=== PATIENT | female | born 1995 | race Caucasian/White ===

== ENCOUNTER 2019-02-07 15:41 | Emergency (ER) | payer MEDICAID, OTHER ==
[~2019-02-07] VITALS: Ht 162.6 cm; Wt 60.7 kg
[~2019-02-07 15:41] MED LIST: FLUC150T PO; ONDA4TAB12 PO
[2019-02-07 15:46] VITALS: BP 136/79
[2019-02-07] MEDS ORDERED: PERM60CR19 TP (16:10)
== END 2019-02-07 16:46 | disposition home or self-care (01) ==
LOC: ER 15:42
DX: B86 Scabies (principal); M79.645 Pain in left finger(s); Z79.899 Other long term (current) drug therapy
CPT/HCPCS: 99283